=== PATIENT | female | born 1995 | race African-American/Black ===

== ENCOUNTER 2017-10-12 14:20 | Inpatient (IN) | payer MEDICAID ==
[~2017-10-12] VITALS: Ht 157.5 cm; Wt 89.0 kg
--- NOTE | ~2017-10-12 | DS ---
PATIENT:TORREY NULL :[birth year] MEDICAL RECORD: [id number] DISCHARGE SUMMARY ADMISSION DATE: 10/13/17 DISCHARGE DATE: 10/17/17 DISCHARGE DIAGNOSES: 1. Atrial fibrillation. 2. Thyroid disorder. HOSPITAL COURSE: Mrs. Null presents with new onset atrial fibrillation converted spontaneously without cardioversion and was discharged home on metoprolol 25 mg b.i.d. We will follow up with her physician in [place]. Further workup from thyroid studies needs to be done as an outpatient. TRANSINT:[id number] Voice Confirmation ID: [id number] DOCUMENT ID: [id number] LULA LEVY MD at 1324 CC: [id number] DICTATION DATE: 10/17/17912 SYSTEMS PLANNER: 10/17/17 1548 DIS IN 10/17/17 [facility] [address] [place] [address]
--- NOTE | ~2017-10-12 | EC ---
PATIENT:TORREY NULL DATE OF SERVICE: 10/12/17 SEX: F MEDICAL RECORD: [id number] DATE OF : [birth year] LOCATION:D.M2 D.212 AGE OF PATIENT: 22 ADMISSION DATE: 10/13/17 REFERRING PHYSICIAN: INTERPRETING PHYSICIAN: LULA SANTOS MD ECHOCARDIOGRAM REPORT ECHO CHARGES 4 ECHO COMPLETE CLINICAL DIAGNOSIS: A-FIB ECHOCARDIOGRAPHIC MEASUREMENTS (adult normal given) AC root (d.<3.7cm) 2.8 cm LV Septum d (<1.2 cm> 1.0 cm Valve Excursion 1.9 cm LV Septum (systole) 1.5 cm Left Atria (s.<4.0cm> 3.4 cm LVPW d(<1.2cm) 1.0 cm RV (d.<2.3cm) 2.1 cm LVPW (sytole) 1.7 cm LV diastole(<5.6CM) 4.6 cm MV E-F(>70mm/sec) cm LV systole 2.4 cm LVOT Diameter 1.7 cm MV exc.(>10mm) cm Est.ejection fraction (50-75%) % Pericardial Effusion N DOPPLER: LVIT cm/sec A 63.0 cm/sec E 94.0 cm/sec LA cm/sec RVSP 25.0 mmHg LVOT 97.0 cm/sec AOP1/2T m/s Asc. Ao 119 cm/sec RVOT 53.0 cm/sec RA cm/sec PA 69.0 cm/sec AV Gradient Peak 5.7 mmHg AV Mean 2.9 mmHg AV Area 1.9 cm MV Gradient Peak 4.9 mmHg MV Mean 2.1 mmHg MV Area cm COMMENTS: [employer] Machine Tender: Savita GACRIAOE Logistics Operations Director: 1 Dr. Santos TAPE# PACS DATE OF SERVICE: 10/13/2017 PROCEDURE: Echocardiogram. FINDINGS: 1. Left ventricle chamber size is within normal limits. Left ventricular systolic function is normal. Overall ejection fraction estimated at 60%. 2. Left atrium, right atrium, and right ventricular chamber sizes are within normal limits. 3. Valvular structures have normal structure and motion. ECHOCARDIOGRAM REPORT [id number] TORREY NULL 4. Doppler interrogation reveals mild tricuspid regurgitation, no other valvular insufficiency or stenosis. Pulmonary systolic pressure is normal estimated at 25 mmHg. 5. No evidence of pericardial effusion or left ventricular thrombus. TRANSINT:[id number] Voice Confirmation ID: [id number] DOCUMENT ID: [id number] LULA SANTOS MD at 1324 CC: [id number] DICTATION DATE: 10/13/17 1254 SQUARING MACHINE OPERATOR: 10/13/17 1338 DIS IN 10/17/17 [place] [id number] [place] [id number]
[2017-10-12 15:14] LABS: BASOPHILS 0.1 % (0-2); EOSINOPHILS 0.5 % (0-7); HEMATOCRIT 36.1 % (36.0-48.0); HEMOGLOBIN 11.4 g/dL (12-16); IMMATURE GRANULOCYTES 0.1 % (0-5); LYMPHOCYTES 13.6 % (15-50); MCH 21.7 pg (26.0-34.0); MCHC 31.6 g/dL (31.0-37.0); MCV 68.6 fL (80.0-100.0); MEAN PLATELET VOLUME 9.4 fL (7.4-10.4); MONOCYTES 6.1 % (2-11); NEUTROPHILS 79.6 % (40-80); PLATELET COUNT 315 10x3/uL (130-400); RBC 5.26 10x6/uL (4.00-5.40); RDW 15.9 % (11.5-14.5); WBC 7.9 10x3/uL (4.8-10.8)
[2017-10-12 15:20] LABS: ALBUMIN 3.7 g/dL (3.4-5.0); ALKALINE PHOSPHATASE 84 U/L (46-116); ALT (SGPT) 28 U/L (10-68); BILIRUBIN - TOTAL 0.36 mg/dL (0.2-1.3); CALC OSMOLALITY 277 mosm/kg (275-300); CALCIUM 9.1 mg/dL (8.5-10.1); CARBON DIOXIDE 23.6 mmol/L (21.0-32.0); CHLORIDE - SERUM 108 mmol/L (98-107); CREATININE - SERUM 0.7 mg/dL (0.6-1.3); GLUCOSE 97 mg/dL (74-106); POTASSIUM - SERUM 3.6 mmol/L (3.5-5.1); PROTEIN - SERUM 6.9 g/dL (6.4-8.2); SODIUM 141 mmol/L (136-145); UREA NITROGEN 5 mg/dL (7-18); eGFR NON AFRICAN AMERICAN > 90 mL/min (90-120)
[2017-10-12 16:00] LABS: HCG URINE NEGATIVE (NEGATIVE)
[2017-10-12 16:06] LABS: APTT 26.8 SECONDS (22.8-39.4); INR 1.04 (0.85-1.17)
[2017-10-12 21:52] VITALS: BP 115/76
[2017-10-12] MEDS ORDERED: CELEXA20 MG PO (22:10)
[2017-10-12] MEDS ORDERED: CATAPRES0.1 MG PO (22:12)
[2017-10-12] MEDS ORDERED: DESERYL100 MG PO (22:12)
[2017-10-13 03:25] VITALS: Ht 157.5 cm; Wt 89.0 kg
[2017-10-13 06:17] VITALS: BP 95/38
[2017-10-13 07:57] VITALS: BP 105/48
[2017-10-13 09:06] LABS: T4 THYROXINE 8.6 ug/dL (4.7-13.3)
[2017-10-13 11:30] VITALS: BP 105/59
[2017-10-13 15:52] VITALS: BP 94/45
[2017-10-13 20:07] VITALS: BP 108/54
[2017-10-14] VITALS: BP 92/54
[2017-10-14 05:21] VITALS: BP 101/53
[2017-10-14 08:10] VITALS: BP 99/45
[2017-10-14 12:28] VITALS: BP 97/51
[2017-10-14 17:31] VITALS: BP 96/59
[2017-10-14 21:16] VITALS: BP 117/85
[2017-10-15 01:23] VITALS: BP 106/45
[2017-10-15 05:58] VITALS: BP 93/43
[2017-10-15 08:14] VITALS: BP 93/46
[2017-10-15 11:48] VITALS: BP 100/64
[2017-10-15 16:20] VITALS: BP 103/66
[2017-10-15 20:00] VITALS: BP 114/74
[2017-10-16] VITALS: BP 91/42
[2017-10-16 04:00] VITALS: BP 99/50
[2017-10-16 09:46] VITALS: BP 90/51
[2017-10-16 16:32] VITALS: BP 133/52
[2017-10-16 19:00] VITALS: BP 111/58
[2017-10-17] VITALS: BP 111/51
[2017-10-17 08:36] VITALS: BP 95/45
[2017-10-17 09:33] VITALS: BP 95/45
[2017-10-17] MEDS ORDERED: LOPRESSOR25 MG PO (09:47)
== END 2017-10-17 10:29 | disposition home or self-care (01) | DRG 310 ==
LOC: D.ER 14:20 → OBSVTIME 18:45 → D.M2 18:45
PROVIDERS: Emergency Medicine; Internal Medicine Interventional Cardiology; Physician Assistant
DX: I48.91 Unspecified atrial fibrillation (principal); E03.9 Hypothyroidism, unspecified; F32.9 Major depressive disorder, single episode, unspecified; Z72.0 Tobacco use